=== PATIENT | male | born 1960 | race Caucasian/White ===

== ENCOUNTER 2017-05-12 18:48 | Emergency (ER) | payer OTHER ==
[~2017-05-12] VITALS: Ht 172.7 cm; Wt 131.8 kg
[~2017-05-12 18:48] MED LIST: COU5 PO; GLYB2.5T5 PO; LOV100 SUBQ; LOV30 SUBQ; METF10002 PO
[2017-05-12 18:51] VITALS: BP 164/107; PULSE 102; RESP 18; O2SAT 97
[2017-05-12] MEDS ORDERED: TdaP Vaccine 0.5 mL Inj IM ONE (22:10)
--- NOTE | 2017-05-12 22:17 | ED.REPORT ---
HPI-Extremity Problem Lower Date of Service May 12, 2017 ED Provider: Jamie Lopez PA-C Julio Cesar is a 56-year-old male with a history of diabetes and hypertension presenting with a chief complaint of a laceration on his right foot. The laceration occurred when a piece of metal penetrated the sole of his sneaker at work. The metal remain in place for extended period of time before he noticed due to some mild neuropathy. Patient reports it bled quite extensively due to his use of warfarin. Patient thinks his last tetanus shot was about 8 years ago but he is unsure. Denies chest pain, shortness of breath, headache, vision changes. Nursing Notes Stated Complaint: RIGHT FOOT LACERATION Chief Complaint: Laceration Nursing Notes Reviewed: Yes Allergies: Coded Allergies: No Known Allergies (Unverified Allergy, Unknown, 05/12/17) Scheduled Enoxaparin-Expunged Drug, Do Not Renew! (Enoxaparin-Expunged Drug, Do Not Renew! ) 30 Mg Syringe 30 MG SUBQ Q12H Enoxaparin-Expunged Drug, Do Not Renew! (Enoxaparin-Expunged Drug, Do Not Renew! ) 100 Mg Syringe 100 MG SUBQ Q12H Glyburide-Expunged Drug, Do Not Renew! (Glyburide-Expunged Drug, Do Not Renew!) 2.5 Mg Tablet 5 MG PO BID Metformin-Expunged Drug, Do Not Renew! (Metformin-Expunged Drug, Do Not Renew!) 1,000 Mg Tablet 1,000 MG PO BID WARFARIN Inactive Drug Do Not Use (Coumadin Inactive Drug Do Not Use) 5 Mg Tablet 5 MG PO 17 General Time Seen by MD: 21:44 Chief Complaint Foot injury right Past Medical History Past Medical History Diabetes Review of Systems Review of Systems Note: Negative unless stated otherwise in history of present illness Physical Exam General: Well appearing, well developed, well nourished, no acute distress. Right foot: 1 cm x 1.5 cm erosion penetrating the dermis on the plantar surface of the MTP joint. Minimal bleeding. Reduced sensation on the plantar surface of foot at baseline. Full strength and range of motion at the first and TP joints. Brisk capillary refill intact. DP and PT pulses 2+. Head: Atraumatic, normocephalic. Eyes: No scleral icterus or injection. No discharge. Vision grossly intact. ENT: Voice clear, hearing grossly intact. Respiratory: No respiratory distress, no increased work of breathing. Speaks in complete sentences. Skin: Warm and dry. Neurological: Grossly nonfocal. Psychological: alert and oriented. Speech appropriate, linear and logical. Behavior appropriate. Initial Vital Signs Vital Signs (First) Date Time Temp Pulse Resp B/P Pulse Ox O2 Delivery O2 Flow Rate FiO2 05/12/17 18:51 36.7 102 18 164/107 97 Room Air Mild tachycardia, elevated blood pressure. Procedures Laceration Management Laceration Management: Plantar surface first MTP joint. One submitted by 1.5 cm erosion through the dermis. Thoroughly irrigated with 400 mL normal saline, cleansed with wound cleanser, dressing and antibiotic ointment and gauze. Patient declined analgesia. Tolerated the procedure well, no complications, condition improved. Procedure Performed by: Allied health pract (MARY Lopez) Re-Eval/Medical Decision Med Decision/Clinical Course This is a 56-year-old male with a history of diabetes and hypertension. Chief complaint a laceration to the plantar surface of the first MTP joint of the right foot. Retained piece of metal in the sole of his sneaker and walked on it for an extended period of time. He has mild neuropathy. Reports extensive bleeding due to his use of warfarin for a history of DVT. Physical examination reveals a 1 x 0.5 cm erosion penetrating the dermis on the plantar surface of the right first MTP joint. Neurovascularly intact with full strength and range of motion. Discussed case with Dr. Richter, who met with and examine the patient , recommended course of treatment. Thoroughly irrigated, cleansed with skin cleanser, dressed with antibiotic ointment and gauze. Advised the patient to not weight-bear until cleared by podiatry, provided crutches. Provided option for levofloxacin 5 mg daily for 7 days and consideration for P Aruginosa, as well as his diabetes. Provided podiatry referral. Advised [id number] analgesia. Provided emergency return precautions. Patient verbalizes understanding of and consent to the plan. Elevated blood pressure at triage is noted. Patient denies symptoms but admits this is significantly elevated for him. Advised primary care follow-up. Discharge & Departure Impression: Primary Impression: Laceration Additional Impression: Elevated blood pressure reading Disposition: Home Discharge Condition All VS Reviewed: Yes Condition: Stable Patient Instructions: Laceration Without Closure (ED) Additional Instructions: Evaluation for laceration emergency department lose interview, physical examination x-rays. This reveals a fairly deep laceration in the base of your right big toe. Thoroughly cleansed and dressed this wound. X-ray evaluation reveals no retained foreign bodies. We have not sutured the wound because this would likely result in infection. We have updated your tetanus shot. Both because this is a fairly dirty wound having occurred through a sneaker and because you are diabetic, I believe it is prudent to put on antibiotics for the next 7 days. I will write a prescription for levofloxacin, 500 mg taken once a day for the next 7 days. I have provided you with a referral to a case technician. Please contact them tomorrow to arrange to be seen. This will be very important to ensure this heals properly. Return to the emergency department for new or worsening symptoms including increasing redness, swelling, pain or feeling ill. I also note that your blood pressure was elevated during your visit to the emergency department. Please discuss this with your primary care provider. Referrals: Jeremy Garrido DPM EDSupervising Provider for APC: Klever Patel DO Attending Statement I took a history of performing exam. I concur with the assessment and plan as outlined above. copies to: Sandra Monteiro; Jeremy Garrido DPM, Seth PA-C May 12, 2017 22:17 Klever Patel DO May 15, 2017 01:08
[2017-05-12] MEDS ORDERED: levoFLOXacin 500 mg Tablet PO ONE (22:40)
--- NOTE | 2017-05-13 10:45 | DRSVH ---
PROCEDURE: X-RAY RIGHT FOOT COMPLETE, MINIMUM THREE VIEWS ([id number]) INDICATIONS: laceration, rule out foreign body TECHNIQUE: 3 views of the foot were acquired. COMPARISON: None. FINDINGS: Bones: No fractures or dislocations. No suspicious bony lesions. Bipartite medial sesamoid involvi ng the first metatarsus. Mild osteoarthritic changes. Soft tissues: No tibiotalar joint effusion. Achilles tendon appears normal. IMPRESSION: No radiopaque soft tissue foreign body or acute bony injury. Dictated by: Brandin Bedolla [facility] Interpreted: Agustín Hendrickson MD on 05/13/2017 at 8:46 Approved by: Agustín Hendrickson M.D. on 05/13/2017 at 10:44
== END 2017-05-12 23:55 | disposition home or self-care (01) ==
LOC: SED 18:48
DX: S91.311A Laceration without foreign body, right foot, initial encounter (principal); W26.8XXA Contact with other sharp object(s), not elsewhere classified, initial encounter; Y93.01 Activity, walking, marching and hiking; Y99.0 Civilian activity done for income or pay; Y92.59 Other trade areas as the place of occurrence of the external cause; E11.40 Type 2 diabetes mellitus with diabetic neuropathy, unspecified; I10 Essential (primary) hypertension; Z79.84 Long term (current) use of oral hypoglycemic drugs; Z79.01 Long term (current) use of anticoagulants